=== PATIENT | male | born 1945 | race Caucasian/White ===

== ENCOUNTER 2017-05-21 18:38 | Observation (INO) | payer OTHER ==
[~2017-05-21] VITALS: Ht 177.8 cm; Wt 80.0 kg
[2017-05-21 18:41] VITALS: BP 158/90; PULSE 65; RESP 18; TEMP 99.1; O2SAT 98
--- NOTE | 2017-05-21 20:49 | PD ---
HPI Chief Complaint: Psychiatric Symptoms Time Seen by Provider: 20:48 Travel History International Travel<30 days: No Contact w/Intl Traveler<30days: No Traveled to known affect area: No History of Present Illness HPI 72-year-old male with history of dementia, presents to the emergency department for evaluation of worsening aggression, running away, and development of left- sided chest discomfort today. Patient is primarily Pakistani-speaking. Translation is through Shawn with our interpretation services. His family is concerned because his behavior has been changing. He has been taking medication for his dementia but they feel it is not working. He has been physically aggressive with his twice over the last 2 days. The patient does not discuss this. He tells me that he is here because he has had left- sided chest discomfort starting today. It does not radiate anywhere. It is a dull, ache. It is not exacerbated or alleviated by anything. He states it is happening now. He has no cardiac history. No other symptoms to report. PFSH Past Medical History Dementia: Yes Social History Alcohol Use: No Tobacco Use: No Substance Use: No Allergies-Medications (Allergen,Severity, Reaction): Coded Allergies: No Known Allergies (Unverified , 05/21/17) Review of Systems Except as stated in HPI: all other systems reviewed are Neg Physical Exam Narrative GENERAL: Well-nourished elderly male patient, ambulatory and in no acute distress SKIN: Focused skin assessment warm/dry. HEAD: Atraumatic. Normocephalic. EYES: Pupils equal and round. No scleral icterus. No injection or drainage. ENT: No nasal bleeding or discharge. Mucous membranes pink and moist. NECK: Trachea midline. No JVD. CARDIOVASCULAR: Regular rate and rhythm. No murmur appreciated. RESPIRATORY: No accessory muscle use. Clear to auscultation. Breath sounds equal bilaterally. GASTROINTESTINAL: Abdomen soft, non-tender, nondistended. Hepatic and splenic margins not palpable. MUSCULOSKELETAL: No obvious deformities. No clubbing. No cyanosis. No edema. NEUROLOGICAL: Awake and alert. No obvious cranial nerve deficits. Motor grossly within normal limits. Normal speech. Data Data Last Documented VS Vital Signs Date Time Temp Pulse Resp B/P (MAP) Pulse Ox O2 Delivery O2 Flow Rate FiO2 05/21/17 18:41 99.1 65 18 158/90 (112) 98 Room Air Orders Orders Complete Blood Count With Diff (05/21/17 20:49) Basic Metabolic Panel (Bmp) (05/21/17 20:49) Urinalysis - C+S If Indicated (05/21/17 20:49) Drug Screen, Random Urine (05/21/17 20:49) Alcohol (Ethanol) (05/21/17 20:49) Electrocardiogram (05/21/17 ) Prothrombin Time / Inr (Pt) (05/21/17 21:04) Act Partial Throm Time (Ptt) (05/21/17 21:04) Ckmb (Isoenzyme) Profile (05/21/17 21:20) Troponin I (05/21/17 21:20) Aspirin Chew (Aspirin Chew) (05/21/17 23:30) Labs Laboratory Tests Test 05/21/17 21:20 White Blood Count 6.5 TH/MM3 Red Blood Count 4.50 MIL/MM3 Hemoglobin 14.1 GM/DL Hematocrit 41.9 % Mean Corpuscular Volume 93.1 FL Mean Corpuscular Hemoglobin 31.4 PG Mean Corpuscular Hemoglobin Concent 33.7 % Red Cell Distribution Width 14.3 % Platelet Count 114 TH/MM3 Mean Platelet Volume 10.6 FL Neutrophils (%) (Auto) 37.9 % Lymphocytes (%) (Auto) 48.0 % Monocytes (%) (Auto) 11.4 % Eosinophils (%) (Auto) 2.2 % Basophils (%) (Auto) 0.5 % Neutrophils # (Auto) 2.5 TH/MM3 Lymphocytes # (Auto) 3.1 TH/MM3 Monocytes # (Auto) 0.7 TH/MM3 Eosinophils # (Auto) 0.1 TH/MM3 Basophils # (Auto) 0.0 TH/MM3 CBC Comment DIFF FINAL Differential Comment Prothrombin Time 12.4 SEC Prothromb Time International Ratio 1.1 RATIO Activated Partial Thromboplast Time 29.6 SEC Urine Color YELLOW Urine Turbidity CLEAR Urine pH 6.5 Urine Specific [place] 1.025 Urine Protein NEG mg/dL Urine Glucose (UA) NEG mg/dL Urine Ketones NEG mg/dL Urine Occult Blood MOD Urine Nitrite NEG Urine Bilirubin NEG Urine Urobilinogen LESS THAN 2.0 MG/DL Urine Leukocyte Esterase NEG Urine RBC 8 /hpf Urine WBC LESS THAN 1 /hpf Urine Mucus FEW /lpf Microscopic Urinalysis Comment CULT NOT INDICATED Blood Urea Nitrogen 31 MG/DL Creatinine 1.32 MG/DL Random Glucose 97 MG/DL Calcium Level 8.3 MG/DL Sodium Level 142 MEQ/L Potassium Level 3.9 MEQ/L Chloride Level 105 MEQ/L Carbon Dioxide Level 30.8 MEQ/L Anion Gap 6 MEQ/L Estimat Glomerular Filtration Rate 53 ML/MIN Total Creatine Kinase 56 U/L Troponin I LESS THAN 0.02 NG/ML Urine Opiates Screen NEG Urine Barbiturates Screen NEG Urine Amphetamines Screen NEG Urine Benzodiazepines Screen NEG Urine Cocaine Screen NEG Urine Cannabinoids Screen NEG Ethyl Alcohol Level LESS THAN 3 MG/DL MDM Medical Decision Making Medical Screen Exam Complete: Yes Emergency Medical Condition: Yes Medical Record Reviewed: Yes Differential Diagnosis Dementia versus electrolyte abnormality versus UTI versus ACS versus just full pain versus pleuritic pain Narrative Course 72-year-old male presents to emergency department for evaluation. Family has brought him here for psychiatric screening and help to manage his dementia outbursts and increasingly aggressive behavior. The patient does not discuss this. He tells me through interpretation services he is here for left-sided chest discomfort that he is still having now. EKG is completely reviewed by my attending physician. Patient is bradycardic with no acute ST elevation or depression. He'll be given aspirin, however the family tells me he will not take the medication. We will try this anyway. Laboratory Tests Test 05/21/17 21:20 White Blood Count 6.5 TH/MM3 Red Blood Count 4.50 MIL/MM3 Hemoglobin 14.1 GM/DL Hematocrit 41.9 % Mean Corpuscular Volume 93.1 FL Mean Corpuscular Hemoglobin 31.4 PG Mean Corpuscular Hemoglobin Concent 33.7 % Red Cell Distribution Width 14.3 % Platelet Count 114 TH/MM3 Mean Platelet Volume 10.6 FL Neutrophils (%) (Auto) 37.9 % Lymphocytes (%) (Auto) 48.0 % Monocytes (%) (Auto) 11.4 % Eosinophils (%) (Auto) 2.2 % Basophils (%) (Auto) 0.5 % Neutrophils # (Auto) 2.5 TH/MM3 Lymphocytes # (Auto) 3.1 TH/MM3 Monocytes # (Auto) 0.7 TH/MM3 Eosinophils # (Auto) 0.1 TH/MM3 Basophils # (Auto) 0.0 TH/MM3 CBC Comment DIFF FINAL Differential Comment Prothrombin Time 12.4 SEC Prothromb Time International Ratio 1.1 RATIO Activated Partial Thromboplast Time 29.6 SEC Urine Color YELLOW Urine Turbidity CLEAR Urine pH 6.5 Urine Specific [place] 1.025 Urine Protein NEG mg/dL Urine Glucose (UA) NEG mg/dL Urine Ketones NEG mg/dL Urine Occult Blood MOD Urine Nitrite NEG Urine Bilirubin NEG Urine Urobilinogen LESS THAN 2.0 MG/DL Urine Leukocyte Esterase NEG Urine RBC 8 /hpf Urine WBC LESS THAN 1 /hpf Urine Mucus FEW /lpf Microscopic Urinalysis Comment CULT NOT INDICATED Blood Urea Nitrogen 31 MG/DL Creatinine 1.32 MG/DL Random Glucose 97 MG/DL Calcium Level 8.3 MG/DL Sodium Level 142 MEQ/L Potassium Level 3.9 MEQ/L Chloride Level 105 MEQ/L Carbon Dioxide Level 30.8 MEQ/L Anion Gap 6 MEQ/L Estimat Glomerular Filtration Rate 53 ML/MIN Total Creatine Kinase 56 U/L Troponin I LESS THAN 0.02 NG/ML Urine Opiates Screen NEG Urine Barbiturates Screen NEG Urine Amphetamines Screen NEG Urine Benzodiazepines Screen NEG Urine Cocaine Screen NEG Urine Cannabinoids Screen NEG Ethyl Alcohol Level LESS THAN 3 MG/DL Patient has some renal insufficiency, otherwise labs are without acute concern. Troponin is less than 0.02. I discussed the patient my attending physician. The patient would typically go to the chest pain center, however with the psychiatric concern, patient will be admitted observation to [facility] with a consult placed to psychiatry. A call was placed to [facility] Diagnosis Primary Impression: Dementia Qualified Codes: F03.91 - Unspecified dementia with behavioral disturbance Additional Impression: Chest pain Qualified Codes: R07.9 - Chest pain, unspecified Admitting Information Admitting Physician Requests: Observation Condition: Stable Dalila Reyes May 21, 2017 20:49
[2017-05-21 22:28] LABS: AUTOMATED NEUTROPHIL # 2.5 TH/MM3 (1.8-7.7); BASOPHIL % 0.5 % (0.0-2.0); BLOOD, URINE MOD (NEG); COMMENT (UR) CULT NOT INDICATED; CULTURE IF INDICATED CULT NOT INDICATED; EOSINOPHIL # 0.1 TH/MM3 (0-0.4); EOSINOPHIL % 2.2 % (0.0-4.0); GLUCOSE,URINE NEG (NEG); HEMATOCRIT 41.9 % (39.0-51.0); HEMO FLAGS DIFF FINAL; KETONE, URINE NEG (NEG); LYMPHOCYTE # 3.1 TH/MM3 (1.0-4.8); MEAN CELL VOLUME 93.1 FL (80.0-100.0); MEAN CORPUSCULAR HEMOGLOBIN 31.4 PG (27.0-34.0); MEAN CORPUSCULAR HGB CONC 33.7 % (32.0-36.0); MONO % 11.4 % (0.0-8.0); MUCUS URINE FEW /lpf (OCC); NEUT % 37.9 % (16.0-70.0); NITRITE,URINE NEG (NEG); PH, URINE 6.5 (5.0-8.5); PLATELET COUNT 114 TH/MM3 (150-450); RED CELL DISTRIBUTION WIDTH 14.3 % (11.6-17.2); URINE COLOR YELLOW (YELLW/STRAW); WHITE BLOOD COUNT 6.5 TH/MM3 (4.0-11.0)
[2017-05-21 22:34] LABS: APTT (PATIENT) 29.6 SEC (24.3-30.1); INTERNATIONAL NORMALIZED RATIO 1.1 RATIO; PROTHROMBIN TIME - PATIENT 12.4 SEC (9.8-11.6)
[2017-05-21 22:38] LABS: ANION GAP 6 MEQ/L (5-15); BICARBONATE 30.8 MEQ/L (21.0-32.0); BLOOD UREA NITROGEN 31 MG/DL (7-18); CHLORIDE 105 MEQ/L (98-107); GLOMERULAR FILTRATION RATE 53 ML/MIN (>89); POTASSIUM 3.9 MEQ/L (3.5-5.1); SODIUM (NA) 142 MEQ/L (136-145)
[2017-05-21 22:44] LABS: ALCOHOL LESS THAN 3 MG/DL (0-5); CREATINE KINASE 56 U/L (39-308)
[2017-05-21] MEDS ORDERED: ASPIRIN 81 MG CHEW TAB CHEW ONE (23:30)
[2017-05-21] MEDS ORDERED: SODIUM CHLORIDE 0.9% FLUSH 10 ML FLUSH IV FLUSH PRN (23:45)
[2017-05-21] MEDS ORDERED: NALOXONE HCL 0.4 MG/ML AMP IV PUSH PRN (23:45)
[2017-05-22] VITALS (8 sets, daily range): BP systolic 134–179; BP diastolic 89–116; PULSE 44–97; RESP 16–20; TEMP 97.5–97.9; O2SAT 96–99
[2017-05-22] MEDS ORDERED: LORazepam 1 MG TAB PO ONE ×2 (00:30→22:30)
--- NOTE | 2017-05-22 03:21 | HHI.HP ---
HPI Service [facility] Primary Care Physician No Primary Care Physician Admission Diagnosis chest pain; dementia with behavioral disturbances Diagnoses: Chief Complaint: psych eval Travel History International Travel<30 Days: No Contact w/Intl Traveler <30 Da: No Traveled to Known Affected Are: No History of Present Illness 72 y/o male with a history of dementia was brought to the ED by his family for a psych evaluation for increased aggressiveness. When assessed by ED physician patient complained of chest pain. Patient is Macedonian speaking and during my assessment interpretation was completed by [employer] compliance vice president Natalie Redmond. Patient states he does not remember why he was brought to the hospital, he is oriented to self and place but not time. He denies any chest pain at this time. He also denies any sob, fever or chills. He does not remember his medical history and states his knows everything. is currently not at the bedside for questioning. Review of Systems Except as stated in HPI: all other systems reviewed are Neg Past Family Social History Past Medical History Per EMR: Dementia Past Surgical History Patient denies any surgical history Allergies: Coded Allergies: No Known Allergies (Unverified , 05/21/17) Active Ordered Medications Current Medications Medications (Trade) Dose Ordered Sig/Rambo Route Start Time Stop Time Status Last Admin (NS Flush) 2 ml UNSCH PRN IV FLUSH 05/21/17 23:45 (NS Flush) 2 ml BID IV FLUSH 05/22/17 09:00 (Narcan Inj) 0.4 mg UNSCH PRN IV PUSH 05/21/17 23:45 Family History Patient does not know his family history Social History Tobacco use: Denies Alcohol use: Use to drink socially Physical Exam Vital Signs Vital Signs Date Time Temp Pulse Resp B/P (MAP) Pulse Ox O2 Delivery O2 Flow Rate FiO2 05/22/17 02:04 97.6 50 19 164/97 (119) 96 05/22/17 01:54 05/22/17 00:34 44 16 175/89 (117) 98 Room Air 05/21/17 18:41 99.1 65 18 158/90 (112) 98 Room Air Physical Exam GENERAL: This is a well-nourished, well-developed patient, in no apparent distress. SKIN: No rashes, ecchymoses or lesions. Cool and dry. HEAD: Atraumatic. Normocephalic. EYES: Pupils equal round and reactive. ENT: Nose without bleeding, purulent drainage or septal hematoma. Airway patent. NECK: Trachea midline. No JVD or lymphadenopathy. CARDIOVASCULAR: Bradycardic rate and rhythm without murmurs, gallops, or rubs. RESPIRATORY: Clear to auscultation. Breath sounds equal bilaterally. No wheezes , rales, or rhonchi. GASTROINTESTINAL: Abdomen soft, non-tender, nondistended. MUSCULOSKELETAL: Extremities without clubbing, cyanosis, or edema. No joint tenderness, effusion, or edema noted. No calf tenderness. NEUROLOGICAL: A&Ox2. Motor and sensory grossly within normal limits. Normal speech. Laboratory Laboratory Tests Test 05/21/17 21:20 White Blood Count 6.5 Red Blood Count 4.50 Hemoglobin 14.1 Hematocrit 41.9 Mean Corpuscular Volume 93.1 Mean Corpuscular Hemoglobin 31.4 Mean Corpuscular Hemoglobin Concent 33.7 Red Cell Distribution Width 14.3 Platelet Count 114 Mean Platelet Volume 10.6 Neutrophils (%) (Auto) 37.9 Lymphocytes (%) (Auto) 48.0 Monocytes (%) (Auto) 11.4 Eosinophils (%) (Auto) 2.2 Basophils (%) (Auto) 0.5 Neutrophils # (Auto) 2.5 Lymphocytes # (Auto) 3.1 Monocytes # (Auto) 0.7 Eosinophils # (Auto) 0.1 Basophils # (Auto) 0.0 CBC Comment DIFF FINAL Differential Comment Prothrombin Time 12.4 Prothromb Time International Ratio 1.1 Activated Partial Thromboplast Time 29.6 Urine Color YELLOW Urine Turbidity CLEAR Urine pH 6.5 Urine Specific [place] 1.025 Urine Protein NEG Urine Glucose (UA) NEG Urine Ketones NEG Urine Occult Blood MOD Urine Nitrite NEG Urine Bilirubin NEG Urine Urobilinogen LESS THAN 2.0 Urine Leukocyte Esterase NEG Urine RBC 8 Urine WBC LESS THAN 1 Urine Mucus FEW Microscopic Urinalysis Comment CULT NOT INDICATED Blood Urea Nitrogen 31 Creatinine 1.32 Random Glucose 97 Calcium Level 8.3 Sodium Level 142 Potassium Level 3.9 Chloride Level 105 Carbon Dioxide Level 30.8 Anion Gap 6 Estimat Glomerular Filtration Rate 53 Total Creatine Kinase 56 Troponin I LESS THAN 0.02 Urine Opiates Screen NEG Urine Barbiturates Screen NEG Urine Amphetamines Screen NEG Urine Benzodiazepines Screen NEG Urine Cocaine Screen NEG Urine Cannabinoids Screen NEG Ethyl Alcohol Level LESS THAN 3 Result Diagram: 05/21/17211905/21/172119 Caprini VTE Risk Assessment Caprini VTE Risk Assessment: Mod/High Risk (score >= 2) Caprini Risk Assessment Model Point Value = 1 Point Value = 2 Point Value = 3 Point Value = 5 Age 41-60 Minor surgery BMI > 25 kg/m2 Swollen legs Varicose veins or History of unexplained or recurrent spontaneous Oral contraceptives or hormone replacement Sepsis (< 1 month) Serious lung disease, including pneumonia (< 1 month) Abnormal pulmonary function Acute myocardial infarction Congestive heart failure (< 1 month) History of inflammatory bowel disease Medical patient at bed rest Age 61-74 Arthroscopic surgery Major open surgery (> 45 min) Laparoscopic surgery (> 45 min) Malignancy Confined to bed (> 72 hours) Immobilizing plaster cast Central venous access Age >= 75 History of VTE Family history of VTE Factor V Leiden Prothrombin [id number] Lupus anticoagulant Anticardiolipin antibodies Elevated serum homocysteine Heparin-induced thrombocytopenia Other congenital or acquired thrombophilia Stroke (< 1 month) Elective arthroplasty Hip, pelvis, or leg fracture Acute spinal cord injury (< 1 month) Prophylaxis Regimen Total Risk Factor Score Risk Level Prophylaxis Regimen 0-1 Low Early ambulation 2 Moderate Order ONE of the following: *Sequential Compression Device (SCD) *Heparin 5000 units SQ BID 3-4 Higher Order ONE of the following medications: *Heparin 5000 units SQ TID *Enoxaparin/Lovenox 40 mg SQ daily (WT < 150 kg, CrCl > 30 mL/min) *Enoxaparin/Lovenox 30 mg SQ daily (WT < 150 kg, CrCl > 10-29 mL/min) *Enoxaparin/Lovenox 30 mg SQ BID (WT < 150 kg, CrCl > 30 mL/min) AND/OR *Sequential Compression Device (SCD) 5 or more Highest Order ONE of the following medications: *Heparin 5000 units SQ TID (Preferred with Epidurals) *Enoxaparin/Lovenox 40 mg SQ daily (WT < 150 kg, CrCl > 30 mL/min) *Enoxaparin/Lovenox 30 mg SQ daily (WT < 150 kg, CrCl > 10-29 mL/min) *Enoxaparin/Lovenox 30 mg SQ BID (WT < 150 kg, CrCl > 30 mL/min) AND *Sequential Compression Device (SCD) Assessment and Plan Problem List: (1) Dementia ICD Code: F03.90 - Unspecified dementia without behavioral disturbance Status: Acute (2) Chest pain ICD Code: R07.9 - Chest pain, unspecified Status: Acute (3) Acute kidney injury ICD Code: N17.9 - Acute kidney failure, unspecified Status: Acute Assessment and Plan 72 y/o male with a history of dementia was brought to the ED by his family for a psych evaluation for increased aggressiveness. When assessed by ED physician patient complained of chest pain. Dementia with increased aggressiveness -Consult psychiatry for recommendations -Sitter at bedside -Will order home medications when med rec is verified with Chest pain, atypical, r/o ACS, patient currently denies any chest pain EKG reviewed and shows Sinus Devin with no ST elevation or depression Troponin .02 -Serial troponin and EKGs -Monitor telemetry Acute kidney injury, creatine 1.3, unknown baseline, suspect dehydration -IVF for hydration -Labs in AM DVT prophylaxis: SCDs Discussed Condition With Patient via compliance vice president Problem Qualifiers (1) Dementia: Qualified Codes: F03.91 - Unspecified dementia with behavioral disturbance (2) Chest pain: Qualified Codes: R07.9 - Chest pain, unspecified Angelita Asencio May 22, 2017 03:21
[2017-05-22] MEDS: SODIUM CHLOR 0.9% 1000 ML INJ 1,000 ML IV SCH (04:14)
[2017-05-22 05:03] LABS: CREATINE KINASE 38 U/L (39-308)
--- NOTE | 2017-05-22 07:33 | EKG ---
Date Performed: 05/21/2017 Time Performed: 21:22:12 PTAGE: 72 years EKG: SINUS BRADYCARDIA WITH MARKED SINUS ARRHYTHMIA BORDERLINE LEFT AXIS DEVIATION POSSIBLE RIGH T VENTRICULAR CONDUCTION DELAY MINIMAL VOLTAGE CRITERIA FOR LVH, CONSIDER NORMAL VARIANT NONSPECIFIC T-WAVE ABNORMALITY BORDERLINE ECG NO PREVIOUS TRACING DOCTOR: Monserrat Sow Interpretating Date/Time 05/22/2017 07:32:07
[2017-05-22 07:35] LABS: BASOPHIL % 0.5 % (0.0-2.0); EOSINOPHIL # 0.1 TH/MM3 (0-0.4); EOSINOPHIL % 2.6 % (0.0-4.0); HEMATOCRIT 40.9 % (39.0-51.0); HEMO FLAGS DIFF FINAL; LYMPH % 40.9 % (9.0-44.0); LYMPHOCYTE # 1.8 TH/MM3 (1.0-4.8); MEAN CORPUSCULAR HGB CONC 33.3 % (32.0-36.0); MONO % 11.3 % (0.0-8.0); NEUT % 44.7 % (16.0-70.0); PLATELET COUNT 113 TH/MM3 (150-450); RED CELL DISTRIBUTION WIDTH 14.2 % (11.6-17.2); WHITE BLOOD COUNT 4.5 TH/MM3 (4.0-11.0)
[2017-05-22 07:52] LABS: BICARBONATE 29.3 MEQ/L (21.0-32.0); POTASSIUM 3.6 MEQ/L (3.5-5.1)
[2017-05-22] MEDS: SODIUM CHLORIDE 0.9% FLUSH 10 ML FLUSH IV FLUSH SCH ×2 (09:00→20:08)
[2017-05-22] MEDS ORDERED: ENALAPRILAT 1.25 MG/ML VIAL IV PUSH PRN (10:00)
[2017-05-22] MEDS ORDERED: amLODIPine BESYLATE 5 MG TAB PO SCH (11:00)
[2017-05-22] MEDS ORDERED: HYDR-755 PO (12:42)
[2017-05-22] MEDS ORDERED: QUET1TAB7 PO (12:42)
--- NOTE | 2017-05-22 12:51 | HHI.PR ---
Subjective Remarks Follow-up for chest pain and dementia with agitation. Sitter at bedside. Patient has been ambulating around the unit all morning. Patient seen using [employer] translation services. The patient does state that he has been having left-sided chest pain and shortness of breath, although he cannot really elaborate. He is oriented to self, knows he is in a hospital, thinks he is in [place]. The patient is not oriented to month or year when asked and states that his memory is failing him. He complains of chronic vision loss. He states that he was seen earlier today by his heart doctor and they came to check his eyes. Objective Vitals Vital Signs Date Time Temp Pulse Resp B/P (MAP) Pulse Ox O2 Delivery O2 Flow Rate FiO2 05/22/17 11:30 97.9 70 16 174/93 (120) 99 05/22/17 08:19 97.6 60 16 169/102 (124) 98 05/22/17 04:00 54 05/22/17 03:36 97.5 56 20 168/95 (119) 98 05/22/17 02:04 97.6 50 19 164/97 (119) 96 05/22/17 01:54 05/22/17 00:34 44 16 175/89 (117) 98 Room Air 05/21/17 18:41 99.1 65 18 158/90 (112) 98 Room Air Result Diagram: 05/22/17 0632 05/22/17 0632 Objective Remarks GENERAL: Well-developed well-nourished. In no acute distress. SKIN: Warm and dry. No lesions noted. HEENT: Normocephalic. Pupils equal and round. Mucous membranes pink and moist. CARDIOVASCULAR: Regular rate and rhythm. No murmur appreciated. No chest wall TTP. RESPIRATORY: No accessory muscle use. Clear to auscultation. Breath sounds equal bilaterally. GASTROINTESTINAL: Abdomen soft, non-tender, nondistended. Bowel sounds x4. MUSCULOSKELETAL: No obvious deformities. No clubbing or cyanosis. No edema. NEUROLOGICAL: Awake and alert. No focal neurological deficits. Moves upper and lower extremities spontaneously. Normal speech. PSYCHIATRIC: Possibly confused mood and affect; insight and judgment limited. A/P Problem List: (1) Dementia ICD Code: F03.90 - Unspecified dementia without behavioral disturbance Status: Acute (2) Chest pain ICD Code: R07.9 - Chest pain, unspecified Status: Acute (3) Acute kidney injury ICD Code: N17.9 - Acute kidney failure, unspecified Status: Acute Assessment and Plan 72-year-old male with a past medical history of dementia who is brought by his family for psychiatric evaluation for increased aggressiveness and was admitted for chest pain Dementia with agitation: Patient is currently calm, cooperative, but confused. Toxicology negative. No signs of infection. Continue home Seroquel and hydroxyzine. Psychiatry consulted, appreciate input. Atypical chest pain: Patient is a poor historian secondary to dementia. ACS ruled out per protocol with unremarkable serial cardiac enzymes. EKG shows sinus bradycardia, rate 40s, with no definite ischemic changes. Check chest x- ray. Stress test. Monitor on telemetry. Hypertension: Started amlodipine. IV Vasotec as needed. JIMMIE: Creatinine 1.32, no previous labs for comparison. Creatinine did improve to 1.08 with IVF. Monitor. DVT prophylaxis: Ambulatory. SCDs. Discharge Planning Follow-up results of cardiac workup prior to medical clearance. Psychiatry [place] acted the patient, recommends inpatient psychiatry at discharge. Problem Qualifiers (1) Dementia: Qualified Codes: F03.91 - Unspecified dementia with behavioral disturbance (2) Chest pain: Qualified Codes: R07.9 - Chest pain, unspecified Neo Orellana May 22, 2017 12:51
[2017-05-22 12:54] LABS: CREATINE KINASE 57 U/L (39-308)
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
--- NOTE | 2017-05-22 14:14 | RADRPT ---
EXAM DATE/TIME: 05/22/2017 13:28 [facility] COMPARISON: No previous studies available for comparison. INDICATIONS : Chest pain. MEDICAL HISTORY : Dementia. SURGICAL HISTORY : None. ENCOUNTER: Initial ACUITY: 1 day PAIN SCORE: 2/10 LOCATION: Bilateral chest FINDINGS: A single view of the chest demonstrates the lungs to be symmetrically aerated without evidence of mas s, infiltrate or effusion. The cardiomediastinal contours are unremarkable. Osseous structures are intact. CONCLUSION: 1. No acute cardiopulmonary findings. Héctor Schofield MD on May 22, 2017 at 14:12 Board Certified Radiologist. This report was verified electronically.
[2017-05-22] MEDS ORDERED: PILL SPLITTER OTHER PRN (15:00)
--- NOTE | 2017-05-22 17:10 | EKG ---
Date Performed: 05/22/2017 Time Performed: 03:16:08 PTAGE: 72 years EKG: SINUS BRADYCARDIA MARKED LEFT AXIS DEVIATION POSSIBLE RIGHT VENTRICULAR CONDUCTION DELAY NO NSPECIFIC T-WAVE ABNORMALITY ABNORMAL ECG Since PREVIOUS TRACING , no significant change noted PREVIOUS TRACIN05/21/2017 21.22 DOCTOR: Monserrat Sow Interpretating Date/Time 05/22/2017 17:08:29
[2017-05-22] MEDS ORDERED: REGADENOSON INJ 0.4 MG/5 ML SYR ONE (17:35)
[2017-05-22] MEDS: hydrOXYzine HCL 10 MG TAB PO SCH (18:00)
[2017-05-22] MEDS ORDERED: amLODIPine BESYLATE 5 MG TAB PO ONE (18:00)
--- NOTE | 2017-05-22 18:42 | RADRPT ---
EXAM DATE/TIME: 05/22/2017 17:01 [facility] COMPARISON: No previous studies available for comparison. INDICATIONS : Chest pain. Angina. DOSE: 27.0 mCi Tc99m Myoview at stress. 8.8 mCi Tc99m Myoview at rest. 0.4 mg Lexiscan STRESS SYMPTOMS: Chest pain. EJECTION FRACTION: 70% MEDICAL HISTORY : Dementia. SURGICAL HISTORY : None. ENCOUNTER: Initial ACUITY: 1 day PAIN SCALE: 4/10 LOCATION: Left chest TECHNIQUE: The patient underwent pharmacologic stress with infusion of prescribed dose. Continuous ECG tracing was monitored during stress. Gated SPECT imaging was performed after stress and conventional SPECT i maging was performed at rest. The examination was performed on a SPECT/CT scanner, both attenuation and non-corrected datasets were reviewed. FINDINGS: DISTRIBUTION: The maximum perfused segment at stress is in the anterolateral wall. PERFUSION STUDY: The pattern of perfusion at stress is within normal limits. GATED STUDY: There is intact wall motion and thickening without hypokinetic or dyskinetic segments. CONCLUSION: Within normal limits. No stress-induced ischemia or abnormal wall motion. RISK CATEGORY: Low Vega Zafar MD on May 22, 2017 at 18:40 Board Certified Radiologist. This report was verified electronically.
[2017-05-22] MEDS ORDERED: QUEtiapine FUMARATE 25 MG TAB PO SCH (21:00)
[2017-05-23] MEDS: SODIUM CHLOR 0.9% 1000 ML INJ 1,000 ML IV SCH (02:44)
[2017-05-23 04:08] VITALS: BP 130/89; PULSE 87; RESP 18; TEMP 98; O2SAT 99
[2017-05-23] MEDS ORDERED: AMLO5 PO (07:36)
[2017-05-23 08:11] VITALS: BP 135/85; PULSE 59; RESP 20; TEMP 97.4; O2SAT 100
[2017-05-23] MEDS: hydrOXYzine HCL 10 MG TAB PO SCH ×3 (08:32→17:10)
[2017-05-23] MEDS: SODIUM CHLORIDE 0.9% FLUSH 10 ML FLUSH IV FLUSH SCH (08:35)
[2017-05-23] MEDS ORDERED: amLODIPine BESYLATE 5 MG TAB PO SCH (09:00)
[2017-05-23 09:25] VITALS: PULSE 67
--- NOTE | 2017-05-23 10:46 | HHI.PR ---
Subjective Remarks Denies cp/sob denies abdominal pain Objective Vitals Vital Signs Date Time Temp Pulse Resp B/P (MAP) Pulse Ox O2 Delivery O2 Flow Rate FiO2 05/23/17 09:25 67 05/23/17 08:11 97.4 59 20 135/85 (102) 100 05/23/17 04:08 98.0 87 18 130/89 (103) 99 05/22/17 19:54 88 18 134/98 (110) 98 05/22/17 16:07 97.8 97 18 179/116 (137) 97 05/22/17 11:30 97.9 70 16 174/93 (120) 99 I/O 05/22/17 05/22/17 05/22/17 05/23/17 05/23/17 05/23/17 07:00 15:00 23:00 07:00 15:00 23:00 Intake Total 960 ml Balance 960 ml Intake Oral 960 ml Result Diagram: 05/22/17 0632 05/22/17 0632 Imaging Last Impressions Myocardial Perfusion Scan Nuc Med 05/22/17 0000 Signed Impressions: Service Date/Time: April 17:01 - CONCLUSION: Within normal limits. No stress-induced ischemia or abnormal wall motion. RISK CATEGORY: Low Vega Zafar MD Chest X-Ray 05/22/17 0000 Signed Impressions: Service Date/Time: April 13:28 - CONCLUSION: 1. No acute cardiopulmonary findings. Héctor Schofield MD Objective Remarks AAOx2 NAD Clear lungs S1S2 RRR soft abdomen, non tender Medications and IVs Current Medications Medications (Trade) Dose Ordered Sig/Rambo Route Start Time Stop Time Status Last Admin (NS Flush) 2 ml UNSCH PRN IV FLUSH 05/21/17 23:45 (NS Flush) 2 ml BID IV FLUSH 05/22/17 09:00 05/23/17 08:35 (Narcan Inj) 0.4 mg UNSCH PRN IV PUSH 05/21/17 23:45 Sodium Chloride 1,000 ml @ 42 mls/hr [id number] IV 05/22/17 03:30 05/22/17 04:14 (Vasotec Inj) 1.25 mg Q6H PRN IV PUSH 05/22/17 10:00 (Atarax) 5 mg TID PO 05/22/17 18:00 05/23/17 08:32 (SEROquel) 25 mg HS PO 05/22/17 21:00 05/22/17 20:06 (Pill Splitter) 1 ea UNSCH PRN OTHER 05/22/17 15:00 (Norvasc) 10 mg DAILY PO 05/23/17 09:00 05/23/17 08:32 A/P Problem List: (1) Dementia ICD Code: F03.90 - Unspecified dementia without behavioral disturbance Status: Acute (2) Chest pain ICD Code: R07.9 - Chest pain, unspecified Status: Acute (3) Acute kidney injury ICD Code: N17.9 - Acute kidney failure, unspecified Status: Acute Assessment and Plan 72-year-old male with a past medical history of dementia who is brought by his family for psychiatric evaluation for increased aggressiveness and was admitted for chest pain Dementia with agitation: Patient calm and cooperative. Toxicology negative. No signs of infection. Continue home Seroquel and hydroxyzine. Psychiatry consulted, appreciate input. Atypical chest pain: Patient is a poor historian secondary to dementia. ACS ruled out per protocol with unremarkable serial cardiac enzymes. EKG shows sinus bradycardia, rate 40s, with no definite ischemic change and patient is asymptomatic. Check chest x-ray. Stress test. Monitor on telemetry. Bradycardia: Resolved. Patient bradycardic on 05/22 which has resolved. Asymptomatic. Hypertension: BP stable, continue amlodipine. JIMMIE: Creatinine 1.32, no previous labs for comparison. Creatinine came down to 1.08. Encouraged oral intake of fluids. DVT prophylaxis: Ambulatory. SCDs. Discharge Planning DC home. Discharge patient to home Condition on discharge: Improved Regular Diet as tolerated Ad Lucy activity Rx written: Amlodipine 10 mg po daily Follow-up with primary care physician Problem Qualifiers (1) Dementia: Qualified Codes: F03.91 - Unspecified dementia with behavioral disturbance (2) Chest pain: Qualified Codes: R07.9 - Chest pain, unspecified Sal Marcus MD May 23, 2017 10:46
[2017-05-23 11:10] VITALS: BP 116/65; PULSE 58; RESP 18; TEMP 97.7; O2SAT 99
[2017-05-23 15:05] VITALS: BP 126/75; PULSE 67; RESP 20; TEMP 98; O2SAT 96
[2017-05-23 15:19] VITALS: PULSE 65
== END 2017-05-23 18:30 ==
LOC: NEPD 18:38 → NEDA 23:43 → NEPGCP 05-22 02:00
PROVIDERS: ADMIT Hospitalist; ATTEND Hospitalist
DX: F03.91 Unspecified dementia, unspecified severity, with behavioral disturbance (principal); R07.9 Chest pain, unspecified; I10 Essential (primary) hypertension; R94.31 Abnormal electrocardiogram [ECG] [EKG]; N17.9 Acute kidney failure, unspecified; H54.7 Unspecified visual loss
CPT/HCPCS: 71010; 78452; 80048; 80307; 81001; 82550; 84484; 85025; 85610; 85730; 93005; 93017; 96360; 96361; 97161; 99285; A9502; G0378; G8987; G8988; G8989; J2785; J7030

== ENCOUNTER 2017-05-23 18:30 | Inpatient (IN) | payer OTHER, MEDICARE ==
[~2017-05-23] VITALS: Ht 167.6 cm; Wt 62.3 kg
[~2017-05-23 18:30] MED LIST: AMLO5 PO; HYDR-755 PO; QUET1TAB7 PO
[2017-05-23 18:35] VITALS: BP 150/91; PULSE 74; RESP 16; TEMP 97.4; O2SAT 97
[2017-05-23] MEDS ORDERED: MAGNESIUM HYDROXIDE SUSP 30 ML CUP PO PRN (21:00)
[2017-05-23] MEDS ORDERED: ACETAMINOPHEN 325 MG TAB PO PRN (21:00)
[2017-05-23] MEDS ORDERED: ALUMINUM/MAGNESIUM/SIMETH 30 ML CUP PO PRN (21:00)
[2017-05-23] MEDS ORDERED: hydrOXYzine HCL 25 MG TAB PO PRN (21:15)
[2017-05-23] MEDS: QUEtiapine FUMARATE 25 MG TAB PO SCH (22:05)
[2017-05-23] MEDS: diphenhydrAMINE HCL 50 MG CAP PO PRN (22:05)
[2017-05-24 06:06] VITALS: BP 152/81; PULSE 72; RESP 17; TEMP 97.6; O2SAT 96
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
[2017-05-24] MEDS: QUEtiapine FUMARATE 25 MG TAB PO SCH (20:08)
[2017-05-24] MEDS: diphenhydrAMINE HCL 50 MG CAP PO PRN (20:09)
[2017-05-25 05:14] VITALS: BP 109/61; PULSE 60; RESP 18; TEMP 97.9
[2017-05-25 08:26] VITALS: BP 121/77; PULSE 77
--- NOTE | 2017-05-25 14:04 | HHI.PYPN ---
Subjective Remarks This is a request for second opinion. Admission note was reviewed, and I agree with the history. Case was discussed with nursing and patient was evaluated in [place]. Patient is pleasant but confused. He is alert and oriented 1. Denies suicidal or homicidal ideation intent or plan. Denies auditory visual hallucinations. Per nursing he is exit seeking looking for his but is easily redirected. At the interview the interview patient becomes tearful and says that he misses his recently passed parents. Not complaining of any pain. Laboratory review shows low platelet count Objective Alert: Yes [place]: Person Mood: Anxious Affect: Tearful Memory Intact: Immediate (impaired) Hallucinations: Auditory (denies) Delusions: No Delusion Type: Paranoid Suicidal: Ideation (denies) Homicidal: Ideation (denies) Insight/Judgment Poor Vitals/IOs Vital Signs Date Time Temp Pulse Resp B/P (MAP) Pulse Ox O2 Delivery O2 Flow Rate FiO2 05/25/17 08:26 77 121/77 (92) 05/25/17 05:14 97.9 18 05/24/17 06:06 96 Intake and Output 05/25/17 05/25/17 05/26/17 08:00 16:00 00:00 Intake Total 100 ml Balance 100 ml Assessment & Plan Problem List: (1) Dementia associated with other underlying disease with behavioral disturbance ICD Codes: F02.81 - Dementia in other diseases classified elsewhere with behavioral disturbance (2) Alzheimer's dementia with behavioral disturbance ICD Codes: G30.8 - Other Alzheimer's disease; F02.81 - Dementia in other diseases classified elsewhere with behavioral disturbance Assessment & Plan I agree with first opinion to continue petition. Criteria include acute psychosis and confusion. Medical consult placed with thrombocytopenia, CBC repeated Justification for Cont. Inpt. Patient would decompensate in a less restrictive setting Alpesh Logan DO May 25, 2017 14:04
[2017-05-25] MEDS ORDERED: amLODIPine BESYLATE 5 MG TAB PO SCH (15:15)
[2017-05-25] MEDS ORDERED: hydrOXYzine PAMOATE 25 MG CAP PO PRN (20:00)
[2017-05-25] MEDS: diphenhydrAMINE HCL 50 MG CAP PO PRN (20:56)
[2017-05-25] MEDS: QUEtiapine FUMARATE 25 MG TAB PO SCH (20:56)
[2017-05-25 21:05] LABS: BASOPHIL % 0.3 % (0.0-2.0); EOSINOPHIL # 0.1 TH/MM3 (0-0.4); EOSINOPHIL % 0.9 % (0.0-4.0); HEMATOCRIT 44.3 % (39.0-51.0); HEMO FLAGS DIFF FINAL; LYMPH % 25.6 % (9.0-44.0); LYMPHOCYTE # 2.1 TH/MM3 (1.0-4.8); MEAN CELL VOLUME 93.7 FL (80.0-100.0); MEAN CORPUSCULAR HEMOGLOBIN 31.5 PG (27.0-34.0); MEAN CORPUSCULAR HGB CONC 33.6 % (32.0-36.0); MONO % 10.8 % (0.0-8.0); NEUT % 62.4 % (16.0-70.0); PLATELET COUNT 136 TH/MM3 (150-450); RED BLOOD COUNT 4.72 MIL/MM3 (4.50-5.90); RED CELL DISTRIBUTION WIDTH 14.6 % (11.6-17.2); WHITE BLOOD COUNT 8.1 TH/MM3 (4.0-11.0)
[2017-05-26 05:27] VITALS: BP 132/78; PULSE 69; RESP 17; TEMP 97.3
[2017-05-26 10:53] LABS: AUTOMATED NEUTROPHIL # 4.3 TH/MM3 (1.8-7.7); BASOPHIL % 0.3 % (0.0-2.0); EOSINOPHIL # 0.1 TH/MM3 (0-0.4); EOSINOPHIL % 1.2 % (0.0-4.0); HEMATOCRIT 43.8 % (39.0-51.0); HEMO FLAGS DIFF FINAL; LYMPH % 23.8 % (9.0-44.0); LYMPHOCYTE # 1.5 TH/MM3 (1.0-4.8); MEAN CELL VOLUME 93.8 FL (80.0-100.0); MEAN CORPUSCULAR HEMOGLOBIN 31.3 PG (27.0-34.0); MEAN CORPUSCULAR HGB CONC 33.3 % (32.0-36.0); MONO % 8.2 % (0.0-8.0); NEUT % 66.5 % (16.0-70.0); PLATELET COUNT 133 TH/MM3 (150-450); RED BLOOD COUNT 4.67 MIL/MM3 (4.50-5.90); RED CELL DISTRIBUTION WIDTH 14.3 % (11.6-17.2); WHITE BLOOD COUNT 6.5 TH/MM3 (4.0-11.0)
[2017-05-26 11:20] LABS: ALT (GPT) 27 U/L (12-78); ANION GAP 5 MEQ/L (5-15); AST (GOT) 45 U/L (15-37); BICARBONATE 32.3 MEQ/L (21.0-32.0); BLOOD UREA NITROGEN 27 MG/DL (7-18); CHLORIDE 105 MEQ/L (98-107); GLOMERULAR FILTRATION RATE 68 ML/MIN (>89); MAGNESIUM 2.1 MG/DL (1.5-2.5); POTASSIUM 3.6 MEQ/L (3.5-5.1); SODIUM (NA) 142 MEQ/L (136-145)
[2017-05-26 11:28] LABS: ALKALINE PHOSPHATASE 91 U/L (45-117); FREE T4 1.16 NG/DL (0.76-1.46); TOTAL BILIRUBIN ADULT 1.3 MG/DL (0.2-1.0)
--- NOTE | 2017-05-26 13:14 | PD.CONS ---
[facility] Request[facility] By Alpesh Logan MD. Reason for Consult Thrombocytopenia Primary Care Physician Unknown Diagnoses: History of Present Illness This is a pleasant 72 y/o male with history of Dementia brought in to ER by Relatives for Psychiatric Evaluation, increased aggressiveness the patient complained of Chest pain in ER, he did not remember why he was brought in to the hospital, at this time seen in Psychiatric unit the patient with Dementia, non Oriented in person but not in time or place. I was consulted for Thrombocytopenia. Review of Systems Constitutional: DENIES: Fever, Chills, Change in appetite Endocrine: DENIES: Heat/cold intolerance Eyes: DENIES: Blurred vision, Eye pain Except as stated in HPI: all other systems reviewed are Neg Past Family Social History Allergies: Coded Allergies: No Known Allergies (Unverified , 05/21/17) Past Medical History Dementia Hypertension Past Surgical History Patient denies any surgical history Reported Medications Reported Meds & Active Scripts Active Norvasc (Amlodipine Besylate) 5 Mg Tab 10 Mg PO DAILY Reported Quetiapine (Quetiapine Fumarate) 25 Mg Tab 25 Mg PO HS Hydroxyzine HCl 10 Mg Tab 5 Mg PO TID Active Ordered Medications Current Medications Medications (Trade) Dose Ordered Sig/Rambo Route Start Time Stop Time Status Last Admin (Benadryl) 25 mg HS PRN PO 05/23/17 21:00 05/25/17 20:56 (Tylenol) 650 mg Q4H PRN PO 05/23/17 21:00 (Milk Of Magnesia Liq) 30 ml DAILY PRN PO 05/23/17 21:00 (Mag-Al Plus Susp Liq) 30 ml Q6H PRN PO 05/23/17 21:00 (SEROquel) 25 mg HS PO 05/23/17 21:00 05/25/17 20:56 (Norvasc) 10 mg DAILY PO 05/24/17 09:00 05/26/17 08:49 (Vistaril) 25 mg Q6H PRN PO 05/25/17 20:00 (Vistaril Inj) 25 mg Q6H PRN IM 05/25/17 20:00 Family History asked and denied. Social History States lives with her and does not smoke or drink. Physical Exam Vital Signs Vital Signs Date Time Temp Pulse Resp B/P (MAP) Pulse Ox O2 Delivery O2 Flow Rate FiO2 05/26/17 05:27 97.3 69 17 132/78 (96) Physical Exam GENERAL: This is a well-nourished, well-developed patient, in no apparent distress. SKIN: No rashes, ecchymoses or lesions. Cool and dry. HEAD: Atraumatic. Normocephalic. EYES: Pupils equal round and reactive. ENT: Nose without bleeding, purulent drainage or septal hematoma. Airway patent. NECK: Trachea midline. No JVD or lymphadenopathy. CARDIOVASCULAR: Bradycardic rate and rhythm without murmurs, gallops, or rubs. RESPIRATORY: Clear to auscultation. Breath sounds equal bilaterally. No wheezes , rales, or rhonchi. GASTROINTESTINAL: Abdomen soft, non-tender, nondistended. MUSCULOSKELETAL: Extremities without clubbing, cyanosis, or edema. No joint tenderness, effusion, or edema noted. No calf tenderness. NEUROLOGICAL: A&Ox1. Motor and sensory grossly within normal limits. Normal speech. Laboratory Laboratory Tests Test 05/25/17 20:24 05/26/17 08:23 White Blood Count 8.1 6.5 Red Blood Count 4.72 4.67 Hemoglobin 14.9 14.6 Hematocrit 44.3 43.8 Mean Corpuscular Volume 93.7 93.8 Mean Corpuscular Hemoglobin 31.5 31.3 Mean Corpuscular Hemoglobin Concent 33.6 33.3 Red Cell Distribution Width 14.6 14.3 Platelet Count 136 133 Mean Platelet Volume 10.7 10.4 Neutrophils (%) (Auto) 62.4 66.5 Lymphocytes (%) (Auto) 25.6 23.8 Monocytes (%) (Auto) 10.8 8.2 Eosinophils (%) (Auto) 0.9 1.2 Basophils (%) (Auto) 0.3 0.3 Neutrophils # (Auto) 5.0 4.3 Lymphocytes # (Auto) 2.1 1.5 Monocytes # (Auto) 0.9 0.5 Eosinophils # (Auto) 0.1 0.1 Basophils # (Auto) 0.0 0.0 CBC Comment DIFF FINAL DIFF FINAL Differential Comment Blood Urea Nitrogen 27 Creatinine 1.07 Random Glucose 93 Total Protein 7.8 Albumin 3.8 Calcium Level 8.7 Phosphorus Level 2.2 Magnesium Level 2.1 Alkaline Phosphatase 91 Aspartate Amino Transf (AST/SGOT) 45 Alanine Aminotransferase (ALT/SGPT) 27 Total Bilirubin 1.3 Sodium Level 142 Potassium Level 3.6 Chloride Level 105 Carbon Dioxide Level 32.3 Anion Gap 5 Estimat Glomerular Filtration Rate 68 Free Thyroxine 1.16 Thyroid Stimulating Hormone 3rd Gen 1.560 Result Diagram: 05/26/1782205/26/17822 Imaging No new Imaging studies. Assessment and Plan Assessment and Plan 1. Dementia associated with Other Underlying disease with behavioral disturbance , Psychiatry specialist following 2. Alzheimer Dementia with Behavioral disturbance, continue Psychiatric unit management 3. Thrombocytopenia Improving since admission his thrombocytopenia may be due to his actual medicines Seroquel and Hydroxyzine, as Mild Thrombocytopenia, may need follow up as outpatient, not worrisome for bleeding at this time, no signs of bleeding. DVT prophylaxis: SCDs Discussed Condition With Patient. do not pursue any special management at this time will need to follow with PCP as outpatient Signed off the case. Discussed Condition With Patient. Danyel Huffman MD May 26, 2017 13:14
--- NOTE | 2017-05-26 15:56 | HHI.PYPN ---
Subjective Remarks Patient seen for follow-up, chart reviewed. Patient found walking around the unit, noted to be confused stating that he had come to the hospital with his and could not find her. He states later that he was working outside planing some crops earlier. Patient reports no physical complaints, no changes in mood but noticed to be tearful at times when remembering his parents. He denies SI, HI, AVH or delusions. Review of Systems Except as stated in HPI: all other systems reviewed are Neg Objective Alert: Yes [place]: Person Mood: Calm Affect: Appropriate Memory Intact: Immediate (impaired) Hallucinations: Other (denies) Delusions: No Delusion Type: Other (denies) Suicidal: Ideation (denies) Homicidal: Ideation (denies) Insight/Judgment poor insight, fair impulse control and judgment Labs Labs reviewed Test 05/25/17 20:24 05/26/17 08:23 White Blood Count 8.1 TH/MM3 6.5 TH/MM3 Red Blood Count 4.72 MIL/MM3 4.67 MIL/MM3 Hemoglobin 14.9 GM/DL 14.6 GM/DL Hematocrit 44.3 % 43.8 % Mean Corpuscular Volume 93.7 FL 93.8 FL Mean Corpuscular Hemoglobin 31.5 PG 31.3 PG Mean Corpuscular Hemoglobin Concent 33.6 % 33.3 % Red Cell Distribution Width 14.6 % 14.3 % Platelet Count 136 TH/MM3 133 TH/MM3 Mean Platelet Volume 10.7 FL 10.4 FL Neutrophils (%) (Auto) 62.4 % 66.5 % Lymphocytes (%) (Auto) 25.6 % 23.8 % Monocytes (%) (Auto) 10.8 % 8.2 % Eosinophils (%) (Auto) 0.9 % 1.2 % Basophils (%) (Auto) 0.3 % 0.3 % Neutrophils # (Auto) 5.0 TH/MM3 4.3 TH/MM3 Lymphocytes # (Auto) 2.1 TH/MM3 1.5 TH/MM3 Monocytes # (Auto) 0.9 TH/MM3 0.5 TH/MM3 Eosinophils # (Auto) 0.1 TH/MM3 0.1 TH/MM3 Basophils # (Auto) 0.0 TH/MM3 0.0 TH/MM3 CBC Comment DIFF FINAL DIFF FINAL Differential Comment Blood Urea Nitrogen 27 MG/DL Creatinine 1.07 MG/DL Random Glucose 93 MG/DL Total Protein 7.8 GM/DL Albumin 3.8 GM/DL Calcium Level 8.7 MG/DL Phosphorus Level 2.2 MG/DL Magnesium Level 2.1 MG/DL Alkaline Phosphatase 91 U/L Aspartate Amino Transf (AST/SGOT) 45 U/L Alanine Aminotransferase (ALT/SGPT) 27 U/L Total Bilirubin 1.3 MG/DL Sodium Level 142 MEQ/L Potassium Level 3.6 MEQ/L Chloride Level 105 MEQ/L Carbon Dioxide Level 32.3 MEQ/L Anion Gap 5 MEQ/L Estimat Glomerular Filtration Rate 68 ML/MIN Free Thyroxine 1.16 NG/DL Thyroid Stimulating Hormone 3rd Gen 1.560 uIU/ML Vitals/IOs Vital Signs Date Time Temp Pulse Resp B/P (MAP) Pulse Ox O2 Delivery O2 Flow Rate FiO2 05/26/17 05:27 97.3 69 17 132/78 (96) 05/24/17 06:06 96 Intake and Output 05/26/17 05/26/17 05/27/17 08:00 16:00 00:00 Intake Total 120 ml 240 ml Balance 120 ml 240 ml Assessment & Plan Problem List: (1) Dementia associated with other underlying disease with behavioral disturbance ICD Codes: F02.81 - Dementia in other diseases classified elsewhere with behavioral disturbance (2) Alzheimer's dementia with behavioral disturbance ICD Codes: G30.8 - Other Alzheimer's disease; F02.81 - Dementia in other diseases classified elsewhere with behavioral disturbance Assessment & Plan Patient noted to be confused and oriented to person only. Currently with noted thrombocytopenia, recommendations as per primary medical team. Continue quetiapine 25mg Po HS. Discharge planning in progress. Justification for Cont. Inpt. At risk for further decompensation if at lower level of care. Aden Shannon MD May 26, 2017 15:56
[2017-05-26 17:05] LABS: HEMOGLOBIN A1b 1.6 %; HEMOGLOBIN Ao 85.6 %; HEMOGLOBIN P3 3.9 %
[2017-05-26] MEDS: QUEtiapine FUMARATE 25 MG TAB PO SCH (20:47)
[2017-05-27 06:19] VITALS: BP 145/85; PULSE 78; RESP 18; TEMP 97.8; O2SAT 98
--- NOTE | 2017-05-27 16:13 | HHI.PYPN ---
Subjective Remarks Patient seen for follow-up, chart reviewed. Patient found walking in the hallway and states that he was previously working on building a house earlier today. Patient noted to be confused and A&O to person only. H deneis any mood or psychotic symptoms. Review of Systems Except as stated in HPI: all other systems reviewed are Neg Objective Alert: Yes [place]: Person Mood: Calm Affect: Appropriate Memory Intact: Immediate (impaired) Hallucinations: Other (denies) Delusions: No Delusion Type: Other (denies) Suicidal: Ideation (denies) Homicidal: Ideation (denies) Insight/Judgment poor insight, fair impulse control, and judgment Vitals/IOs Vital Signs Date Time Temp Pulse Resp B/P (MAP) Pulse Ox O2 Delivery O2 Flow Rate FiO2 05/27/17 06:19 97.8 78 18 145/85 (105) 98 Intake and Output 05/27/17 05/27/17 05/28/17 08:00 16:00 00:00 Intake Total 360 ml Balance 360 ml Assessment & Plan Problem List: (1) Dementia associated with other underlying disease with behavioral disturbance ICD Codes: F02.81 - Dementia in other diseases classified elsewhere with behavioral disturbance (2) Alzheimer's dementia with behavioral disturbance ICD Codes: G30.8 - Other Alzheimer's disease; F02.81 - Dementia in other diseases classified elsewhere with behavioral disturbance Assessment & Plan Patient with confusion, no behavioral dyscontrol, tolerating medicaitons well, denies any ADRs. Discharge planning in progress. Justification for Cont. Inpt. At risk for further decompensation if at lower level of care. Aden Shannon MD May 27, 2017 16:13
[2017-05-27 18:14] VITALS: BP 144/81; PULSE 92; RESP 17; TEMP 97.3; O2SAT 98
[2017-05-27] MEDS: QUEtiapine FUMARATE 25 MG TAB PO SCH (20:30)
[2017-05-28 05:42] VITALS: BP 143/80; PULSE 87; RESP 18; TEMP 97.5; O2SAT 93
--- NOTE | 2017-05-28 15:48 | HHI.PYPN ---
Subjective Remarks Patient seen for follow-up, chart review. Patient found pacing in the hallway, cooperative. Patient noted to be confused, alert and oriented only to person. Patient believes today that he had come blocking after having his car had broken down and is planning to walk back to fix it. Patient noted to have intact remote memory but impaired recent memory. Patient continues to be in good behavioral control was noted to be calm and cooperative with staff. Patient denies any mood or psychotic symptoms denies any SI or HI. Review of Systems Except as stated in HPI: all other systems reviewed are Neg Mental Status Examination Consciousness: Alert Appearance: Appropriate Speech: Unremarkable Orientation: Person Memory: Impaired (describe) Thought Content: Linear, Logical Thought Associations: Intact Language: Other (fluid and spontaneous) Fund of Knowledge: Below average Hallucination Type: None Attention and Concentration: Good Suicidal Ideation: No Previous Suicide Attempts: No Homicidal Ideation: No Previous Homicide Attempts: No Insight: Poor Judgment: Adequate Affect: Euthymic Mood: Appropriate, Euthymic Motor Activity: Normal gait Results Vitals/IOs Vital Signs Date Time Temp Pulse Resp B/P (MAP) Pulse Ox O2 Delivery O2 Flow Rate FiO2 05/28/17 05:42 97.5 87 18 143/80 (101) 93 Intake and Output 05/28/17 05/28/17 05/29/17 08:00 16:00 00:00 Intake Total 360 ml Balance 360 ml Assessment & Plan Problem List: (1) Dementia associated with other underlying disease with behavioral disturbance ICD Codes: F02.81 - Dementia in other diseases classified elsewhere with behavioral disturbance (2) Alzheimer's dementia with behavioral disturbance ICD Codes: G30.8 - Other Alzheimer's disease; F02.81 - Dementia in other diseases classified elsewhere with behavioral disturbance Assessment & Plan Patient's continues to be confused and oriented only to person. Patient tolerating medications well. Patient unlikely able to return back home and treatment team is currently searching for placement. Continue current treatment , current thrombocytopenia remain stable. discharge planning in progress. Justification for Cont. Inpt. At risk for further decompensation if at lower level of care Aden Shannon MD May 28, 2017 15:48
--- NOTE | 2017-05-28 16:28 | PD.TTN ---
Patient Problems 1. Discharge planning 2. Medication compliance 3. Knowledge deficit 4. Lack of coping skills Progress Toward Goals Provider Present: Dr. Haroon Shannon Provider Input: patient is pleasant and compliant with medications. Patient is oriented x2 but otherwise is doing well on the unit. Psychiatric Counselors Present: CHARY Tomlinson Psych Therapist Input: Patient is observed to be walking around the unit counting his steps on the title. There is a language barrier and counselor is unable to speak with patient directly. patient will be at court tomorrow and placement is being looked for in the meantime. Jackelyn Espinoza [facility] May 28, 2017 16:28
[2017-05-28 17:05] VITALS: BP 131/87; PULSE 119; RESP 18; TEMP 98; O2SAT 97
[2017-05-28] MEDS: QUEtiapine FUMARATE 25 MG TAB PO SCH (20:41)
[2017-05-29 06:16] VITALS: BP 114/67; PULSE 86; RESP 16; TEMP 97; O2SAT 94
--- NOTE | 2017-05-29 17:12 | HHI.PYPN ---
Subjective Remarks Patient seen for follow-up, chart reviewed. Patient presented to mental health court today where a continuance was issued. Patient was oriented to person only and believes that his was waiting for him somewhere. He is noted to pace on the unit but calm and cooperative with staff. Review of Systems Except as stated in HPI: all other systems reviewed are Neg Mental Status Examination Appearance: Appropriate Consciousness: Alert Orientation: Person Motor Activity: Normal gait Speech: Unremarkable Language: Adequate Fund of Knowledge: Adequate Attention and Concentration: Adequate Memory: Impaired Mood: Appropriate Affect: Appropriate Thought Process & Associations: Intact Thought Content: Appropriate Hallucination Type: None Delusion Type: None Suicidal Ideation: No Suicidal Plan: No Suicidal Intention: No Homicidal Ideation: No Homicidal Plan: No Homicidal Intention: No Insight: Poor Judgment: Adequate Results Vitals/IOs Vital Signs Date Time Temp Pulse Resp B/P (MAP) Pulse Ox O2 Delivery O2 Flow Rate FiO2 05/29/17 06:16 97.0 86 16 114/67 (83) 94 Intake and Output 05/29/17 05/29/17 05/30/17 08:00 16:00 00:00 Intake Total 0 ml Balance 0 ml Assessment & Plan Problem List: (1) Dementia associated with other underlying disease with behavioral disturbance ICD Codes: F02.81 - Dementia in other diseases classified elsewhere with behavioral disturbance (2) Alzheimer's dementia with behavioral disturbance ICD Codes: G30.8 - Other Alzheimer's disease; F02.81 - Dementia in other diseases classified elsewhere with behavioral disturbance Assessment & Plan Patient continues to be confused, no behavioral issues since admissions, noted to be calm and cooperative with staff. Patient waiting for appropriate placement. Continue current treatment. Discharge planning in progress. Justification for Cont. Inpt. At risk for further decompensation if at lower level of care. Aden Shannon MD May 29, 2017 17:12
[2017-05-29 17:30] VITALS: BP 139/68; PULSE 106; RESP 16; TEMP 98.6; O2SAT 97
[2017-05-29] MEDS: QUEtiapine FUMARATE 25 MG TAB PO SCH (20:49)
[2017-05-30 05:55] VITALS: BP 119/72; PULSE 103; RESP 18; TEMP 97.6
--- NOTE | 2017-05-30 11:09 | HHI.PYPN ---
Subjective Remarks Patient seen for follow up; chart reviewed. Patient found walking in the hallway, oriented only to person. Patient states that he needs to leave back to the city as his sons are waiting for him there. Patient was provided with some jogging pants which he states needs to give them to his to tailor them as they are too big. He denies any physical complaints at this time. Review of Systems Except as stated in HPI: all other systems reviewed are Neg Mental Status Examination Appearance: Appropriate Consciousness: Alert Orientation: Person Motor Activity: Normal gait Speech: Unremarkable Language: Adequate Fund of Knowledge: Adequate Attention and Concentration: Adequate Memory: Impaired Mood: Appropriate Affect: Appropriate (tearful at times when talking about his family) Thought Process & Associations: Intact Thought Content: Appropriate Hallucination Type: None Delusion Type: None Suicidal Ideation: No Suicidal Plan: No Suicidal Intention: No Homicidal Ideation: No Homicidal Plan: No Homicidal Intention: No Insight: Poor Judgment: Adequate Results Vitals/IOs Vital Signs Date Time Temp Pulse Resp B/P (MAP) Pulse Ox O2 Delivery O2 Flow Rate FiO2 05/30/17 05:55 97.6 103 18 119/72 (88) 05/29/17 17:30 97 Intake and Output 05/30/17 05/30/17 05/31/17 08:00 16:00 00:00 Intake Total 480 ml Balance 480 ml Assessment & Plan Problem List: (1) Dementia associated with other underlying disease with behavioral disturbance ICD Codes: F02.81 - Dementia in other diseases classified elsewhere with behavioral disturbance (2) Alzheimer's dementia with behavioral disturbance ICD Codes: G30.8 - Other Alzheimer's disease; F02.81 - Dementia in other diseases classified elsewhere with behavioral disturbance Assessment & Plan Patient continues to be confused. Continue current treatment. Continue to encourage maintenance of person hygiene. Discharge planning in progress. Justification for Cont. Inpt. At risk for further decompensation if at lower level of care. Discharge Planning Patient to be discharged to custodial once a facility is acquired. Aden Shannon MD May 30, 2017 11:09
[2017-05-30 18:02] VITALS: BP 128/60; PULSE 112; RESP 18; TEMP 97.7; O2SAT 97
[2017-05-30] MEDS: QUEtiapine FUMARATE 25 MG TAB PO SCH (20:42)
[2017-05-30] MEDS: diphenhydrAMINE HCL 50 MG CAP PO PRN (20:42)
[2017-05-31 06:00] VITALS: BP 117/76; PULSE 75; RESP 15; O2SAT 95
[2017-05-31 09:17] VITALS: BP 130/75; PULSE 88
--- NOTE | 2017-05-31 11:45 | HHI.PYPN ---
Subjective Remarks +Pt seen and discussed with staff. He has been calm and cooperative with care. He is oriented to self only. He slept well last night. He walks hallways and goes to door but is easily redirected from exit seeking. No aggression/ agitation. Compliant with medications and tolerating without side effects. Mental Status Examination Appearance: Appropriate Consciousness: Alert Orientation: Person Motor Activity: Normal gait Speech: Unremarkable Language: Adequate Fund of Knowledge: Poor Attention and Concentration: Other (poor) Memory: Impaired Mood: Appropriate Affect: Appropriate Thought Process & Associations: Intact Thought Content: Appropriate Hallucination Type: None Delusion Type: None Suicidal Ideation: No Suicidal Plan: No Suicidal Intention: No Homicidal Ideation: No Homicidal Plan: No Homicidal Intention: No Insight: Poor Judgment: Adequate Results Vitals/IOs Vital Signs Date Time Temp Pulse Resp B/P (MAP) Pulse Ox O2 Delivery O2 Flow Rate FiO2 05/31/17 09:17 88 130/75 (93) 05/31/17 06:00 15 95 05/30/17 18:02 97.7 Intake and Output 05/31/17 05/31/17 06/01/17 08:00 16:00 00:00 Intake Total 240 ml Balance 240 ml Assessment & Plan Problem List: (1) Dementia associated with other underlying disease with behavioral disturbance ICD Codes: F02.81 - Dementia in other diseases classified elsewhere with behavioral disturbance (2) Alzheimer's dementia with behavioral disturbance ICD Codes: G30.8 - Other Alzheimer's disease; F02.81 - Dementia in other diseases classified elsewhere with behavioral disturbance Assessment & Plan Continue current tx plan. Estimated LOS: days Justification for Cont. Inpt. risk of decompensation Anneliese Hwang MD May 31, 2017 11:45
[2017-05-31 18:25] VITALS: BP 120/78; PULSE 111; RESP 18; O2SAT 96
[2017-05-31] MEDS: QUEtiapine FUMARATE 25 MG TAB PO SCH (20:50)
[2017-06-01 04:00] VITALS: BP 125/73; PULSE 79; RESP 17; TEMP 98.9; O2SAT 97
[2017-06-01 09:26] VITALS: BP 118/69
--- NOTE | 2017-06-01 11:23 | HHI.PYPN ---
Subjective Remarks Pt seen and discussed with. Pt has had no behavioral problems on unit. Engaged in coloring activity with staff. Cooperative with medications and care. Mental Status Examination Appearance: Appropriate Consciousness: Alert Orientation: Person Motor Activity: Normal gait Speech: Unremarkable Language: Adequate Fund of Knowledge: Poor Attention and Concentration: Other (poor) Memory: Impaired Mood: Appropriate Affect: Appropriate Thought Process & Associations: Intact Thought Content: Appropriate Hallucination Type: None Delusion Type: None Suicidal Ideation: No Suicidal Plan: No Suicidal Intention: No Homicidal Ideation: No Homicidal Plan: No Homicidal Intention: No Insight: Poor Judgment: Adequate Results Vitals/IOs Vital Signs Date Time Temp Pulse Resp B/P (MAP) Pulse Ox O2 Delivery O2 Flow Rate FiO2 06/01/17 09:26 118/69 (85) 06/01/17 04:00 98.9 79 17 97 Intake and Output 06/01/17 06/01/17 06/02/17 08:00 16:00 00:00 Intake Total 120 ml Balance 120 ml Assessment & Plan Problem List: (1) Dementia associated with other underlying disease with behavioral disturbance ICD Codes: F02.81 - Dementia in other diseases classified elsewhere with behavioral disturbance (2) Alzheimer's dementia with behavioral disturbance ICD Codes: G30.8 - Other Alzheimer's disease; F02.81 - Dementia in other diseases classified elsewhere with behavioral disturbance Assessment & Plan Continue current tx plan. Estimated LOS: days Justification for Cont. Inpt. Continue current tx plan. Anneliese Hwang MD Jun 01, 2017 11:23
[2017-06-01 18:00] VITALS: BP 123/60; PULSE 99; RESP 19; TEMP 98.3; O2SAT 98
[2017-06-01] MEDS: QUEtiapine FUMARATE 25 MG TAB PO SCH (21:26)
[2017-06-02 06:12] VITALS: BP 126/75; PULSE 87; RESP 17; TEMP 97.3; O2SAT 100
[2017-06-02 08:53] VITALS: BP 123/60; PULSE 99; RESP 19; TEMP 98.3; O2SAT 98
--- NOTE | 2017-06-02 17:10 | HHI.PYPN ---
Subjective Remarks Patient seen for follow-up, chart reviewed. Patient found lying in hospital bed was able to wake up and engage in interview today. Patient states that he was recently working on the floor the hallway, tended to clean it and believes that he was tired for construction of the floor. 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 Patient reports that he is sleeping well, eating and drinking well, mood being "normal" denies any auditory or visual hallucinations or or delusions. Patient alert and oriented to person only. Patient denies any physical complaint at this time. Review of Systems Except as stated in HPI: all other systems reviewed are Neg Mental Status Examination Appearance: Appropriate Consciousness: Alert Orientation: Person Motor Activity: Normal gait Speech: Unremarkable Language: Adequate Fund of Knowledge: Poor Attention and Concentration: Adequate Memory: Impaired Mood: Appropriate Affect: Appropriate Thought Process & Associations: Intact Thought Content: Appropriate Hallucination Type: None Delusion Type: None Suicidal Ideation: No Suicidal Plan: No Suicidal Intention: No Homicidal Ideation: No Homicidal Plan: No Homicidal Intention: No Insight: Poor Judgment: Adequate Results Vitals/IOs Vital Signs Date Time Temp Pulse Resp B/P (MAP) Pulse Ox O2 Delivery O2 Flow Rate FiO2 06/02/17 08:53 98.3 99 19 123/60 (81) 98 Intake and Output 06/02/17 06/02/17 06/03/17 08:00 16:00 00:00 Intake Total 240 ml 120 ml 120 ml Balance 240 ml 120 ml 120 ml Assessment & Plan Problem List: (1) Dementia associated with other underlying disease with behavioral disturbance ICD Codes: F02.81 - Dementia in other diseases classified elsewhere with behavioral disturbance (2) Alzheimer's dementia with behavioral disturbance ICD Codes: G30.8 - Other Alzheimer's disease; F02.81 - Dementia in other diseases classified elsewhere with behavioral disturbance Assessment & Plan Patient is time continues to be confused and alerted and oriented only to person. Patient with no physical complaints continue current treatment for now. Patient awaiting placement to facility that is willing to accept him also considering the patient is Kiswahili-speaking only. Discharge planning in progress. Justification for Cont. Inpt. At risk for further decompensation if at lower level of care Discharge Planning [facility] as patient will require constant supervision due to his current dementia. Family unwilling to accept patient back to the home. Treatment team will continue to search for accepting facilities Aden Shannon MD Jun 02, 2017 17:10
[2017-06-02 18:00] VITALS: BP 138/85; PULSE 83; RESP 18; TEMP 97.9; O2SAT 99
[2017-06-02] MEDS: QUEtiapine FUMARATE 25 MG TAB PO SCH (21:08)
[2017-06-03 05:34] VITALS: BP 150/87; PULSE 71; RESP 17; TEMP 97; O2SAT 97
--- NOTE | 2017-06-03 07:52 | HHI.PYPN ---
Subjective Remarks Patient seen for follow-up, chart reviewed. Patient found lying in hospital bed asleep, cooperative today. Patient stated that he is sleeping well, no physical complaints, M.D. and drinking well, alert and oriented only to person. Patient states that he has spoken to his earlier this morning and has coffee with her and plans to speak with her later today. Patient still noted to be confused but pleasant with staff and cooperative. Review of Systems Except as stated in HPI: all other systems reviewed are Neg Mental Status Examination Appearance: Appropriate Consciousness: Alert Orientation: Person Motor Activity: Normal gait Speech: Unremarkable Language: Adequate Fund of Knowledge: Poor Attention and Concentration: Adequate Memory: Impaired Mood: Appropriate Affect: Appropriate, Euthymic Thought Process & Associations: Intact Thought Content: Appropriate Hallucination Type: None Delusion Type: None Suicidal Ideation: No Suicidal Plan: No Suicidal Intention: No Homicidal Ideation: No Homicidal Plan: No Homicidal Intention: No Insight: Poor Judgment: Adequate Results Vitals/IOs Vital Signs Date Time Temp Pulse Resp B/P (MAP) Pulse Ox O2 Delivery O2 Flow Rate FiO2 06/03/17 05:34 97.0 71 17 150/87 (108) 97 Assessment & Plan Problem List: (1) Dementia associated with other underlying disease with behavioral disturbance ICD Codes: F02.81 - Dementia in other diseases classified elsewhere with behavioral disturbance (2) Alzheimer's dementia with behavioral disturbance ICD Codes: G30.8 - Other Alzheimer's disease; F02.81 - Dementia in other diseases classified elsewhere with behavioral disturbance Assessment & Plan Patient with no behavioral dyscontrol since admission, cooperative with staff. Patient has any physical complaints at this time tolerating medication regimen well. Continue current treatment. Discharge planning in progress Justification for Cont. Inpt. At risk for further decompensation if at lower level of care Discharge Planning [facility], treatment team exploring options at this time. Aden Shannon MD Jun 03, 2017 07:52
[2017-06-03 18:00] VITALS: BP 116/65; PULSE 99; RESP 18; TEMP 97.5; O2SAT 97
[2017-06-03] MEDS: QUEtiapine FUMARATE 25 MG TAB PO SCH (20:58)
[2017-06-04 01:29] VITALS: BP 99/69; PULSE 99; RESP 20; O2SAT 95
[2017-06-04 06:04] VITALS: BP 122/73; PULSE 76; RESP 16; TEMP 98.4
--- NOTE | 2017-06-04 07:35 | HHI.PYPN ---
Subjective Remarks Patient seen for follow-up, chart reviewed. Patient was found standing in the hallway noted to call cooperatively today. Patient states that he had gotten up early today because he was going to try to finish the Tylenol to the floor. Patient recalls his upbringing and his home town where she would wake up early every morning along with his siblings and his father to attend to the farm/ [place]. Patient continues to be confused and oriented only to person. Patient denies any physical complaints at this time reports eating and drinking well and no problem with bowel movement. Review of Systems Except as stated in HPI: all other systems reviewed are Neg Mental Status Examination Appearance: Appropriate Consciousness: Alert Orientation: Person Motor Activity: Normal gait Speech: Unremarkable Language: Adequate Fund of Knowledge: Poor Attention and Concentration: Adequate Memory: Impaired Mood: Appropriate Affect: Appropriate, Euthymic Thought Process & Associations: Intact Thought Content: Appropriate Hallucination Type: None Delusion Type: None Suicidal Ideation: No Suicidal Plan: No Suicidal Intention: No Homicidal Ideation: No Homicidal Plan: No Homicidal Intention: No Insight: Poor Judgment: Adequate Results Vitals/IOs Vital Signs Date Time Temp Pulse Resp B/P (MAP) Pulse Ox O2 Delivery O2 Flow Rate FiO2 06/04/17 06:04 98.4 76 16 122/73 (89) 06/04/17 01:29 95 Intake and Output 06/04/17 06/04/17 06/05/17 08:00 16:00 00:00 Intake Total 240 ml Balance 240 ml Assessment & Plan Problem List: (1) Dementia associated with other underlying disease with behavioral disturbance ICD Codes: F02.81 - Dementia in other diseases classified elsewhere with behavioral disturbance (2) Alzheimer's dementia with behavioral disturbance ICD Codes: G30.8 - Other Alzheimer's disease; F02.81 - Dementia in other diseases classified elsewhere with behavioral disturbance Assessment & Plan Patient with a behavioral dyscontrol, tolerating treatment well. Continue current treatment. Patient awaiting for placement with possibly tomorrow at a [facility] but pending confirmation today. Justification for Cont. Inpt. At risk for further decompensation if it lower level of care Discharge Planning Patient likely to discharge tomorrow to [facility] facility pending confirmation today. Aden Shannon MD Jun 04, 2017 07:35
--- NOTE | 2017-06-04 10:18 | PD.TTN ---
Patient Problems 1. Discharge planning 2. Medication compliance 3. Knowledge deficit 4. Lack of coping skills Progress Toward Goals Provider Present: Dr. Haroon Shannon Provider Input: patient is pleasant and compliant with medications. Patient is oriented x2 but otherwise is doing well on the unit. 06/04 doctor observed pt overall stable but in need for locked facility and not be able to be in a home as he is exit seeking Psychiatric Counselors Present: Jackelyn Espinoza [facility] Psych Therapist Input: Patient is observed to be walking around the unit counting his steps on the title. There is a language barrier and counselor is unable to speak with patient directly. patient will be at court tomorrow and placement is being looked for in the meantime. 06/04 referred to [facility] and they are working with family today to discuss finances and this placement, will refer pt to local NH and other NH in the area today to see if they could consider him Denita Gutierrez LCSW Jun 04, 2017 10:18
[2017-06-04 18:07] VITALS: BP 129/75; PULSE 77; RESP 18; TEMP 97; O2SAT 98
[2017-06-04] MEDS: QUEtiapine FUMARATE 25 MG TAB PO SCH (21:00)
[2017-06-05 05:27] VITALS: BP 110/67; PULSE 104; RESP 17; TEMP 98.5; O2SAT 98
[2017-06-05] MEDS ORDERED: AMLO10 PO (07:40)
[2017-06-05] MEDS ORDERED: QUET1TAB7 PO (07:40)
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
--- NOTE | 2017-06-05 08:49 | PD.TTN ---
Patient Problems 1. Discharge planning 2. Medication compliance 3. Knowledge deficit 4. Lack of coping skills Progress Toward Goals Provider Present: Dr. Haroon Shannon Provider Input: patient is pleasant and compliant with medications. Patient is oriented x2 but otherwise is doing well on the unit. 06/04 doctor observed pt overall stable but in need for locked facility and not be able to be in a home as he is exit seeking Psychiatric Counselors Present: Jackelyn Espinoza [facility] Psych Therapist Input: Patient is observed to be walking around the unit counting his steps on the title. There is a language barrier and counselor is unable to speak with patient directly. patient will be at court tomorrow and placement is being looked for in the meantime. 06/04 referred to [facility] and they are working with family today to discuss finances and this placement, will refer pt to local NH and other NH in the area today to see if they could consider him Occupational Therapist Input: 06/04 does not engage much, comes to fresh air Denita GutierrezW Jun 05, 2017 08:49
--- NOTE | 2017-06-05 16:03 | HHI.PYPN ---
Subjective Remarks Patient seen for follow, chart review. Patient found walking the hallway reports having slept well no physical complaints at this time. Patient reports eating and drinking well, denies any adverse drug reactions with current medication regimen. Patient continues to be alert and oriented only to person. Today he believes that his parents have one month ago was noted to be tearful and also states that he has his back in his home country. Review of Systems Except as stated in HPI: all other systems reviewed are Neg Mental Status Examination Appearance: Appropriate Consciousness: Alert Orientation: Person Motor Activity: Normal gait Speech: Unremarkable Language: Adequate Fund of Knowledge: Poor Attention and Concentration: Adequate Memory: Impaired Mood: Appropriate Affect: Appropriate, Other (noted to be tearful when recalling that his parents ) Thought Process & Associations: Intact Thought Content: Appropriate Hallucination Type: None Delusion Type: None Suicidal Ideation: No Suicidal Plan: No Suicidal Intention: No Homicidal Ideation: No Homicidal Plan: No Homicidal Intention: No Insight: Poor Judgment: Adequate Results Vitals/IOs Vital Signs Date Time Temp Pulse Resp B/P (MAP) Pulse Ox O2 Delivery O2 Flow Rate FiO2 06/05/17 05:27 98.5 104 17 110/67 (81) 98 Intake and Output 06/05/17 06/05/17 06/06/17 08:00 16:00 00:00 Intake Total 120 ml 0 ml Balance 120 ml 0 ml Assessment & Plan Problem List: (1) Dementia associated with other underlying disease with behavioral disturbance ICD Codes: F02.81 - Dementia in other diseases classified elsewhere with behavioral disturbance (2) Alzheimer's dementia with behavioral disturbance ICD Codes: G30.8 - Other Alzheimer's disease; F02.81 - Dementia in other diseases classified elsewhere with behavioral disturbance Assessment & Plan Patient continues to comply with treatment, has not had any behavioral dyscontrol since admission, pleasant with staff. Continue current treatment. Discharge planning in progress Justification for Cont. Inpt. At risk for further decompensation if at lower level of care Discharge Planning Patient was to be discharged today but was postponed by accepting facility for tomorrow. Aden Shannon MD Jun 05, 2017 16:03
[2017-06-05 18:01] VITALS: BP 125/74; PULSE 73; RESP 17; TEMP 98; O2SAT 98
[2017-06-05] MEDS: QUEtiapine FUMARATE 25 MG TAB PO SCH ×2 (20:34→20:37)
[2017-06-06 04:00] VITALS: BP 133/88; PULSE 66; RESP 17; TEMP 98.5; O2SAT 96
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
== END 2017-06-06 13:15 | DRG 57 ==
LOC: H250 18:30 → H260 05-26 14:25 → H250 05-29 12:00
PROVIDERS: ADMIT Student in an Organized Health Care Education/Training Program; ATTEND Student in an Organized Health Care Education/Training Program
DX: G30.9 Alzheimer's disease, unspecified (principal); F02.81 Dementia in other diseases classified elsewhere, unspecified severity, with behavioral disturbance; D69.6 Thrombocytopenia, unspecified; I10 Essential (primary) hypertension; Z87.891 Personal history of nicotine dependence
CPT/HCPCS: 80053; 82607; 82746; 83036; 83735; 84100; 84439; 84443; 85025; Q0163